=== PATIENT | female | born 1965 | race Caucasian/White ===

== ENCOUNTER 2016-07-18 11:18 | Inpatient (IN) | payer BC ==
[~2016-07-18] VITALS: Ht 165.1 cm; Wt 103.5 kg
[2016-07-18 11:24] VITALS: Ht 165.1 cm; Wt 103.5 kg
[2016-07-18] MEDS ORDERED: PRLSR20 PO (11:50)
[2016-07-18] MEDS ORDERED: DIAZ-165 PO (11:50)
[2016-07-18] MEDS ORDERED: OXYC-57 PO (11:50)
[2016-07-18] MEDS ORDERED: IBUP-1451 PO (11:50)
[2016-07-18] MEDS ORDERED: MoRPHine SULFATE 4 MG/ML 1 ML CARP\\VIAL IV STA (12:28)
[2016-07-18] MEDS ORDERED: ONDANSETRON INJ 2 MG/ML 2 ML VIAL IV STA (12:28)
[2016-07-18] MEDS ORDERED: DEXAMETHASONE SOD INJ 10 MG/ML VIAL IV STA (12:28)
[2016-07-18 12:46] LABS: BASO % 0.4 %; BASO ABS # 0.04 K/uL (0-0.2); COMPLETE YES; EOS % 2.7 %; HEMATOCRIT 39.1 % (37-47); IG% 0.3 %; LYMPH % 27.2 %; LYMPH ABS # 2.83 K/uL (1.2-3.4); MEAN CELL VOLUME 88.7 fL (80-100); MEAN CORPUSCULAR HEMOGLOBIN 30.6 pg (25-34); MEAN CORPUSCULAR HGB CONC 34.5 g/dl (32-36); MEAN PLATELET VOLUME 9.5 fL (7.4-10.4); MONO % 6.9 %; NEUT % 62.5 %; PLATELET COUNT 370 K/uL (130-400); RED BLOOD COUNT 4.41 M/uL (4.2-5.4); WHITE BLOOD COUNT 10.41 K/uL (4.8-10.8)
[2016-07-18 13:06] LABS: BUN/CREATININE RATIO 9.7 (10-20); CALCIUM 9.2 mg/dl (8.5-10.1); CREATININE 0.9 mg/dl (0.60-1.20)
--- NOTE | 2016-07-18 15:15 | EMERGENCY ROOM VISIT NOTE ---
History First contact with patient: 11:55 Chief Complaint: BACK PAIN Stated Complaint: SEVERE BACK PAIN, LEFT LEG WEAKNESS, NUMBNESS History of Present Illness The patient is a 51 year old female who presents to the Emergency Room via private vehicle with complaints of "severe back pain, left leg weakness, numbness". The patient states that 15 years ago she had surgery performed by Dr. Aidan Pichardo of the [facility] where she had a lumbar laminectomy of the L5-S1 and potentially L4 region. She states she has been okay since that time however about 5-6 months ago she began with nerve pain in the left buttock that she performed stretches and was able to continue her daily activities. She states that as of Thursday she felt a change and has been to the [facility] twice and had an MRI as well as with her family doctor and then to see DANIS Jordan of [facility] yesterday. The patient states that they discuss that she may need surgery but she decided to try injections first. She states she thought this was reasonable however today feels that she is unable to deal with the pain on the outpatient setting. She states that she was prescribed iron and Percocet in the emergency department and has been taking Motrin and this is not been "touching" the pain. She states she lives alone and this is very difficult. She states that the MRI was performed this past Thursday. There is been no change such as trauma or reinjury to the area that she is aware of. She rates the pain as a 10/10. She denies any genital numbness, legs giving out, recent trauma, recent fall, abdominal pain, fever, incontinence. Review of Systems A complete 10-point Review of Systems was discussed with the patient, with pertinent positives and negatives listed in the History of Present Illness. All remaining Review of Systems questions can be considered negative unless otherwise specified. Past Medical/Surgical History Medical Problems: (1) Anxiety (2) Chronic sinusitis (3) GERD (gastroesophageal reflux disease) (4) Lumbar stenosis with neurogenic claudication Surgical Problems: (1) S/P bilateral breast reduction (2) S/P lumbar laminectomy Family History Heart disease, high blood pressure, cancer. Social History Smoking Status: Never Smoker Social History: Patient lives alone. Current/Historical Medications Scheduled Estradiol-Levonorgestrel (Climara Pro), 1 PATCH EXT WK Fluticasone Propionate (Nasal) (Flonase Allergy Relief), 1 SPRAY ALEC BID Omeprazole (Prilosec), 20 MG PO DAILY Probiotic Product (Probiotic), 1 CAP PO DAILY Scheduled PRN Diazepam (Valium), 5 MG PO Q8 PRN for Anxiety Ibuprofen Tab (Motrin), 800 MG PO Q8H PRN for Pain Oxycodone/Acetaminophen 5MG/325MG (Percocet 5MG/325MG), 1 TAB PO HS PRN for Pain Allergies Coded Allergies: No Known Allergies (Unverified , 07/18/16) Physical Exam Vital Signs Date Time Temp Pulse Resp B/P Pulse Ox O2 Delivery O2 Flow Rate FiO2 07/18/16 15:48 62 18 204/114 98 Room Air 07/18/16 14:38 61 18 161/97 96 Room Air 07/18/16 12:41 65 18 178/87 97 07/18/16 11:24 36.9 77 18 178/98 98 Room Air Pain Rating (0-10): 7.0 Physical Exam VITAL SIGNS - Vital signs and nursing notes were reviewed. The patient is afebrile, she is hypertensive at 178/98, she is not tachycardic and is saturating well on room air at 98%. GENERAL -51-year-old female appearing her stated age who is in no acute distress. Communicates well with provider and answers questions appropriately. SKIN - Without rashes. HEAD - NC/AT. NECK - Neck with FROM. Supple to palpation. No meningeal signs. LUNGS - Chest wall symmetric without accessory muscle use, intercostals retractions, or central cyanosis. Normal vesicular breath sounds CTA B/L. No wheezes, rales, or rhonchi appreciated. CARDIAC - RRR with S1/S2. No murmur, rubs, or gallops appreciated. ABDOMEN - Abdominal contour without pulsations or visible masses. BS normoactive all four quadrants. No tenderness, palpable masses, hepatosplenomegaly, or ascites noted. MUSCULOSKELETAL: There is no tenderness to the spinous processes of the cervical , lumbar or thoracic region. There is tenderness to the left gluteal region that radiates down the left leg. EXTREMITIES - No clubbing or peripheral cyanosis. No pretibial edema present. + 5/5 strength noted in UE/LE bilaterally. Vascular intact. NEUROLOGIC - patient neurologically intact. Patellar reflexes +2/4. PSYCH - A&Ox3 and cooperates fully with examiner. Pt is very pleasant and interacts well with examiner. Medical Decision & Procedures Laboratory Results 07/18/16 12:35 Red Blood Count 4.41, Mean Corpuscular Volume 88.7, Mean Corpuscular Hemoglobin 30.6, Mean Corpuscular Hemoglobin Concent 34.5, Mean Platelet Volume 9.5, Neutrophils (%) (Auto) 62.5, Lymphocytes (%) (Auto) 27.2, Monocytes (%) (Auto) 6.9, Eosinophils (%) (Auto) 2.7, Basophils (%) (Auto) 0.4, Neutrophils # (Auto) 6.51, Lymphocytes # (Auto) 2.83, Monocytes # (Auto) 0.72, Eosinophils # (Auto) 0.28, Basophils # (Auto) 0.04 Test 07/18/16 12:35 White Blood Count 10.41 K/uL (4.8-10.8) Red Blood Count 4.41 M/uL (4.2-5.4) Hemoglobin 13.5 g/dL (12.0-16.0) Hematocrit 39.1 % (37-47) Mean Corpuscular Volume 88.7 fL (80-100) Mean Corpuscular Hemoglobin 30.6 pg (25-34) Mean Corpuscular Hemoglobin Concent 34.5 g/dl (32-36) Platelet Count 370 K/uL (130-400) Mean Platelet Volume 9.5 fL (7.4-10.4) Neutrophils (%) (Auto) 62.5 % Lymphocytes (%) (Auto) 27.2 % Monocytes (%) (Auto) 6.9 % Eosinophils (%) (Auto) 2.7 % Basophils (%) (Auto) 0.4 % Neutrophils # (Auto) 6.51 K/uL (1.4-6.5) Lymphocytes # (Auto) 2.83 K/uL (1.2-3.4) Monocytes # (Auto) 0.72 K/uL (0.11-0.59) Eosinophils # (Auto) 0.28 K/uL (0-0.5) Basophils # (Auto) 0.04 K/uL (0-0.2) RDW Standard Deviation 43.5 fL (36.4-46.3) RDW Coefficient of Variation 13.4 % (11.5-14.5) Immature Granulocyte % (Auto) 0.3 % Immature Granulocyte # (Auto) 0.03 K/uL (0.00-0.02) Medications Administered Medications (Trade) Dose Ordered Sig/Anthony Route Start Time Stop Time Status Last Admin Dose Admin Morphine Sulfate (MoRPHine SULFATE INJ) 4 mg NOW STAT IV 07/18/16 12:28 07/18/16 12:30 DC 07/18/16 12:36 4 MG Dexamethasone Sodium Phosphate (Decadron Inj) 10 mg NOW STAT IV 07/18/16 12:28 07/18/16 12:30 DC 07/18/16 12:36 10 MG Ondansetron HCl (Zofran Inj) 4 mg NOW STAT IV 07/18/16 12:28 07/18/16 12:30 DC 07/18/16 12:36 4 MG Lorazepam 0.5 mg 0.5 mg NOW STAT PO 07/18/16 15:42 07/18/16 15:45 DC 07/18/16 15:47 0.5 MG Sodium Chloride (Nss 1000ml) 1,000 ml @ 15 mls/hr Q24H IV 07/18/16 16:21 08/17/16 16:20 07/18/16 18:16 15 MLS/HR Medical Decision Patient was seen and evaluated as above. Patient furnishes an MRI disc with results. No evidence of cauda equina syndrome. The patient appears to have tried an outpatient management of Percocet and Valium of which has not been working subjectively. I do not believe that imaging at this time needs updated as she had an MRI this past Thursday. The patient does not have any cauda equina syndrome findings upon my examination. Because the patient was in pain I did elect to obtain IV access, obtained a CBC, PRP as well as medicate the patient with morphine, Decadron and Zofran for any nausea. She was reassessed and was not feeling much better. Because the patient had been into ERs within the past week as well as her family doctor and the [facility] I did find it appropriate to discuss the case with [facility] receiving specialist. At 2:01 PM on 07/18/2016 I spoke with Alexis Rouse PA-C [facility] who encouraged me to call to the operating room and speak with Dr. William or his physician clinical education assistant. This was attempted and was unsuccessful. I then was able to reach Dr. William and speak with him at 3:37 PM on 07/18/2016. I spoke with him regarding the patient case over the speaker phone in the operating room. I discussed the case and he kindly agreed to come down to the emergency room and evaluate the patient. In reviewing the patient' s blood work for CBC and PRP did not reveal any significant findings. The decision was made to let the patient. Patient was reevaluated multiple times throughout her stay. The patient was educated upon today's decision to admit and seem With plan of care. She stated she did not feel, trouble going home as she had failed the outpatient pain therapy. Please refer to further hospital documentation regarding her stay. I believe that further evaluation and management is appropriate at this time. In the evaluation and treatment of this patient the following differential diagnoses were entertained: Cauda equina syndrome, lumbar pain with radiculopathy, acute exacerbation of chronic pain among others. [place] Drug Monitoring Program Search Results: patient reviewed within database, no issues identified Impression Primary Impression: Low back pain radiating to left lower extremity Departure Information Dispostion Admitted as an inpatient Referrals Navjot Deleon M.D. (PCP) Patient Instructions My [facility]
[2016-07-18] MEDS ORDERED: OXYCODONE HCL IR 5 MG TAB (IMMEDIATE RELEASE) PO STA (15:42)
[2016-07-18] MEDS ORDERED: LORAZEPAM 0.5 MG TAB PO STA (15:42)
[2016-07-18] MEDS ORDERED: LACTATED RINGER'S 1000ML 1,000 ML IV SCH (16:21)
[2016-07-18] MEDS ORDERED: ACETAMINOPHEN 325 MG TAB PO PRN (16:30)
[2016-07-18] MEDS ORDERED: PROMETHAZINE HCL INJ 12.5 MG in SODIUM CHLORIDE 0.9% 50ML 50 ML IV PRN (16:30)
[2016-07-18] MEDS ORDERED: NALOXONE HCL 0.4 MG/1 ML VIAL/CARP IV PRN (16:30)
[2016-07-18] MEDS ORDERED: LORAZEPAM INJ 1 MG in SYRINGE 0.5 ML IV PRN (16:30)
[2016-07-18] MEDS ORDERED: CYCLOBENZAPRINE HCL 10 MG TAB PO PRN (16:30)
--- NOTE | 2016-07-18 16:47 | HISTORY & PHYSICAL EXAMINATION ---
DATE OF ADMISSION: 07/18/2016 CHIEF COMPLAINT: Back and left leg pain. HISTORY OF PRESENT ILLNESS: This is a very pleasant 51-year-old female who presents to Emergency Department today with worsening back and left leg radiculopathy. It has progressed to the point that she is markedly limited in her ability to ambulate and exceeded her ability to control her pain at home with oxycodone and Valium. She has been in and out of the ER in [place] at least twice in the past week. She has seen her family physician for this in the past week and has been to my office yesterday and has seen my PA secondary to the pain. At that consultation, we were considering a trial of epidural injections; however, her symptoms have progressed to the point pain medications not longer control her symptoms and she is unable to ambulate. Her symptom complex starts along the lumbosacral junction extending into the left buttock, posterior thigh, below the knee, into the lesser toe, and arch of her foot. Any weightbearing markedly exacerbated her symptom complex. The pain does awaken her from sleep. Right lower extremity is asymptomatic. She does have a history of undergoing previous laminectomies at L4-5 and L5-S1 in 1998 and 2000. She has done well until the last 5 months where she had the above-mentioned symptoms progressive in nature. She denies any loss of bowel or bladder control at this time. PAST MEDICAL HISTORY: Essentially negative. PAST SURGICAL HISTORY: Includes breast reduction and previously mentioned lumbar procedures. MEDICATIONS: INCLUDE OXYCODONE AND VALIUM. 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 PHYSICAL EXAMINATION: She is hypertensive with a 204/114. Vitals are otherwise stable. She exhibits some decreased sensation to light touch in the left lower extremity compared to the right. Negative straight leg raising on the right, markedly positive on the left. She has 4+/5 dorsiflexion and extensor hallucis longus on the left, 5/5 on the right. Well-healed mid lumbar incision. MRI available for review does demonstrate evidence of a laminotomy defects at L4-5 and L5-S1 on the left. There is evidence of anterior listhesis at L4-5 on the right with a vacuum phenomenon and significant disc space collapse and bilateral neural foraminal disease at L5-S1 with evidence of disc herniation on the left side and caudal migration affecting the L5 and S1 nerve roots. ASSESSMENT: Recurrent disc herniation L5-S1, anterolisthesis L4-5, and lateral recess and foraminal stenosis. PLAN: At this time, the patient has failed an extensive course of outpatient management, has marked decline in status, and inability to ambulate and control her pain. Subsequently admitted to the hospital for pain control. I will consult medicine for preoperative evaluation and hypertensive management. We are considering revision decompression and fusion L4-5 and L5-S1 as soon as she is cleared for surgery. Risks include but not limited to from anesthesia, unsterile process, nerve damage, blood loss requiring transfusion, infection, reoperation, and benefits would be marked improvement of radicular complaints. PATRICIA
--- NOTE | 2016-07-18 16:57 | DIAGNOSTIC IMAGING REPORT ---
CHEST 2 VIEWS ROUTINE CLINICAL HISTORY: Preoperative chest COMPARISON STUDY: No previous studies for comparison. FINDINGS: The cardiac and mediastinal contours are normal. There is no evidence of focal pulmonary consolidation. There is no evidence of failure. No pleural effusions are visualized.[ IMPRESSION: No active disease in the chest. Electronically signed by: Johann Mak M.D. 07/18/2016 4:55 PM Dictated Date/Time: 07/18/2016 4:55 PM
[2016-07-18 17:17] VITALS: O2SAT 98; BMI 38.0
[2016-07-18 17:45] LABS: BUN/CREATININE RATIO 10.2 (10-20); CALCIUM 9.1 mg/dl (8.5-10.1); CREATININE 0.88 mg/dl (0.60-1.20); POTASSIUM 4.1 mmol/L (3.5-5.1)
[2016-07-18 17:48] LABS: ALB/GLOB RATIO 1.2 (0.9-2)
[2016-07-18 17:53] LABS: PREG INTERNAL NEGATIVE QC NEG CLEAR BACKGROUND; PREG INTERNAL POSITIVE QC POS CONTROL LINE
[2016-07-18] MEDS: SODIUM CHLORIDE 0.9% 1000ML 1,000 ML IV SCH (18:16)
[2016-07-18 18:45] VITALS: BP 143/82; PULSE 82; TEMP 36.6; O2SAT 97
[2016-07-18] MEDS ORDERED: HydrALAZINE HCL 20 MG/ML VIAL IV. PRN (18:45)
[2016-07-18] MEDS: HYDROmorphone HCL 0.5MG/ML 50 ML CASSETTE IV PRN ×2 (18:48→23:00)
[2016-07-18] MEDS ORDERED: MISCCAP80 PO (19:08)
[2016-07-18] MEDS ORDERED: ESTRDIS EXT (19:08)
[2016-07-18] MEDS ORDERED: FLUT0.15 NAE (19:08)
[2016-07-18 19:45] VITALS: BP 140/89; PULSE 77; TEMP 36.7; O2SAT 96
--- NOTE | 2016-07-18 19:49 | Medical Consult ---
Consultation Date of Consultation: Jul 18, 2016. Attending Physician: Marcos William D.O. Reason for Consultation: preop evaluation, hypertension History of Present Illness This is a 51 y/o female with prior lumbar laminectomy in 1998 and 2000 who was admitted today by Dr. William for intractable low back pain. Patient states back pain was going on for 5-6 months but worsened on Thursday. She was seen at [facility] twice and by her PCP Dr. Deleon earlier this week. She states pain starts in left lower back with radiation of pain down the LLE "like and electric current" with associated LLE paresthesias and weakness. She was taking Valium, Percocet, and ibuprofen at home. She was seen yesterday by Dr. Gonzalez of [facility] with plan for future injection, but unfortunately when she got home she was having uncontrolled pain to the point she was unable to ambulate. She presented to ER with pain rated 10/10 and was feeling anxious with heart racing. Her BP in the ER was elevated up to 204/114. She was treated with Oxycodone IR, morphine 4 mg, Decadron, and Ativan in ER. BP is now improved to 143/82. She denies history of HTN. She has not been on hypertensive medications. On her clinic visit 07/14/16 her BP was 138/88. She denies groin numbness or loss of bowel or bladder control. She has chronic sinusitis and was planned to have sinus surgery today which was cancelled. Denies recent fever, chills, AVILES, dizziness, cough, chest pain, SOB, nausea, vomiting, diarrhea, constipation, dysuria, frequency. Past Medical/Surgical History Medical Problems: (1) Anxiety Status: Chronic (2) Chronic sinusitis Status: Chronic (3) GERD (gastroesophageal reflux disease) Status: Chronic Surgical Problems: (1) S/P bilateral breast reduction Status: Chronic (2) S/P lumbar laminectomy Permanent Comment: 1998 and 2000 Status: Chronic Social History Smoking Status: Never Smoker Alcohol Use: socially Drug Use: none Marital Status: ( 2014) Housing Status: lives alone Occupation Status: unemployed Allergies Coded Allergies: No Known Allergies (Unverified , 07/18/16) Home Medications Active Reported Climara Pro (Estradiol-Levonorgestrel) 1 Dis Dis 1 Patch EXT WK Probiotic (Probiotic Product) 1 Cap Cap 1 Cap PO DAILY Flonase Allergy Relief (Fluticasone Propionate (Nasal)) 50 Mcg/Act Spr 1 [place] ALEC BID Valium (Diazepam) 5 Mg Tab 5 Mg PO Q8 PRN Motrin (Ibuprofen) 800 Mg Tab 800 Mg PO Q8H PRN Prilosec (Omeprazole) 20 Mg Capcr 20 Mg PO DAILY Percocet 5MG/325MG (Oxycodone/Acetaminophen) Tab 1 Tab PO HS PRN 30 Days PAIN Current Inpatient Medications Current Inpatient Medications Medications (Trade) Dose Ordered Sig/Anthony Route Start Time Stop Time Status Last Admin Dose Admin Acetaminophen (Tylenol Tab) 650 mg Q6H PRN PO 07/18/16 16:30 08/17/16 16:29 Docusate Sodium 100 mg 100 mg BID PO 07/18/16 21:00 08/17/16 20:59 Promethazine HCl/ Sodium Chloride (Phenergan Inj/ Nss 50ml) 50.5 ml @ 202 mls/hr Q6H PRN IV 07/18/16 16:30 08/17/16 16:29 Ondansetron HCl (Zofran Inj) 4 mg Q6H PRN IV 07/18/16 16:30 08/17/16 16:29 Lorazepam 1 mg 1 mg Q6H PRN PO 07/18/16 16:30 08/17/16 16:29 Lorazepam/Syringe (Ativan Inj/ Syringe) 1 ml @ 1 mls/min Q6H PRN IV 07/18/16 16:30 08/17/16 16:29 Cyclobenzaprine HCl (Flexeril Tab) 10 mg Q8H PRN PO 07/18/16 16:30 08/17/16 16:29 Oxycodone/ Acetaminophen (Percocet 5-325mg Tab) Moderate to Severe mike... Q4H PRN PO 07/18/16 16:30 08/01/16 16:29 Naloxone HCl (Narcan Inj) 0.1 mg Q5M PRN IV 07/18/16 16:30 08/17/16 16:29 Hydromorphone HCl 25 mg 25 mg PRN PRN IV 07/18/16 16:30 08/01/16 16:29 07/18/16 18:48 25 MG Sodium Chloride (Nss 1000ml) 1,000 ml @ 15 mls/hr Q24H IV 07/18/16 16:21 08/17/16 16:20 07/18/16 18:16 15 MLS/HR Hydralazine HCl (HydrALAZINE INJ) 10 mg Q8 PRN IV. 07/18/16 18:45 08/17/16 18:44 Review of Systems Constitutional: No chills, No fever ENT: + nasal symptoms (chronic sinusitis) Respiratory: No cough, No shortness of breath Cardiovascular: + problem reported (heart racing associated with anxiety), No chest pain Abdomen: No constipation, No diarrhea, No nausea, No pain, No vomiting Musculoskeletal: + calf pain (left calf spasm associated with the back pain), + problem reported (back pain- see HPI) Genitourinary - Female: No dysuria, No urinary frequency Neurologic: + numbness/tingling, + weakness Psychiatric: + anxiety Hematologic / Lymphatic: No abnormal bleeding/bruising Physical Exam Date Time Temp Pulse Resp B/P Pulse Ox O2 Delivery O2 Flow Rate FiO2 07/18/16 17:17 98 Room Air 07/18/16 16:34 106 115/73 98 Room Air 07/18/16 15:48 62 18 204/114 98 Room Air 07/18/16 14:38 61 18 161/97 96 Room Air 07/18/16 12:41 65 18 178/87 97 07/18/16 11:24 36.9 77 18 178/98 98 Room Air General Appearance: WD/WN, no apparent distress, + pertinent finding (alert 51 year old female, lying in bed, mildly uncomfortable due to pain, being set up on Dilaudid ORGAN PIPE MAKER METAL) Head: normocephalic, atraumatic Eyes: normal inspection, sclerae normal ENT: normal ENT inspection, hearing grossly normal Neck: supple, trachea midline Respiratory/Chest: lungs clear, normal breath sounds, no respiratory distress, no accessory muscle use Cardiovascular: regular rate, rhythm, no murmur Abdomen/GI: normal bowel sounds, non tender, soft Back: + pertinent finding (left lumbar paraspinal tenderness, + straight leg raise on the left, negative SLR on the right) Extremities/Musculoskelatal: normal inspection, no calf tenderness, no pedal edema Neurologic/Psych: alert, normal mood/affect, oriented x 3, + pertinent finding (sensation decreased on left foot compared to the right, able to flex extend bilateral ankles equally ) Skin: normal color, warm/dry Laboratory Results Last 24 Hours Test 07/18/16 12:35 07/18/16 17:00 White Blood Count 10.41 K/uL Red Blood Count 4.41 M/uL Hemoglobin 13.5 g/dL Hematocrit 39.1 % Mean Corpuscular Volume 88.7 fL Mean Corpuscular Hemoglobin 30.6 pg Mean Corpuscular Hemoglobin Concent 34.5 g/dl Platelet Count 370 K/uL Mean Platelet Volume 9.5 fL Neutrophils (%) (Auto) 62.5 % Lymphocytes (%) (Auto) 27.2 % Monocytes (%) (Auto) 6.9 % Eosinophils (%) (Auto) 2.7 % Basophils (%) (Auto) 0.4 % Neutrophils # (Auto) 6.51 K/uL Lymphocytes # (Auto) 2.83 K/uL Monocytes # (Auto) 0.72 K/uL Eosinophils # (Auto) 0.28 K/uL Basophils # (Auto) 0.04 K/uL RDW Standard Deviation 43.5 fL RDW Coefficient of Variation 13.4 % Immature Granulocyte % (Auto) 0.3 % Immature Granulocyte # (Auto) 0.03 K/uL Sodium Level 140 mmol/L 141 mmol/L Potassium Level 4.0 mmol/L 4.1 mmol/L Chloride Level 106 mmol/L 106 mmol/L Carbon Dioxide Level 25 mmol/L 23 mmol/L Anion Gap 9.0 mmol/L 12.0 mmol/L Blood Urea Nitrogen 9 mg/dl 9 mg/dl Creatinine 0.90 mg/dl 0.88 mg/dl Est Creatinine Clear Calc Drug Dose 89.3 ml/min 91.3 ml/min Estimated GFR () 86.4 88.8 Estimated GFR (Non- 74.6 76.6 BUN/Creatinine Ratio 9.7 10.2 Random Glucose 89 mg/dl 125 mg/dl Calcium Level 9.2 mg/dl 9.1 mg/dl Total Bilirubin 0.5 mg/dl Aspartate Amino Transf (AST/SGOT) 18 U/L Alanine Aminotransferase (ALT/SGPT) 17 U/L Alkaline Phosphatase 65 U/L Total Protein 7.8 gm/dl Albumin 4.2 gm/dl Globulin 3.6 gm/dl Albumin/Globulin Ratio 1.2 Human Chorionic Gonadotropin, Qual NEG Assessment & Plan INTRACTABLE BACK PAIN Admitted to ortho service by Dr. William History of prior lumbar laminectomies in 1998 and 2000 Has recurrent disc herniation L5-S1, anterolisthesis L4-L5, and lateral recess and foraminal stenosis as per ortho note On ORGAN PIPE MAKER METAL for pain control; bowel regimen added Plan is for possible revision surgery CBC and PRP unremarkable; CXR unremarkable EKG shows nonspecific T wave abnormalities; no prior EKG available for comparison Recheck EKG in am She is considered medically stable for elective surgery HYPERTENSION BP elevated to 204/115 in ER- likely due to pain and anxiety; now improved to 143/82 No history of hypertension; not on antihypertensive medications Will monitor and add PRN hydralazine ANXIETY Will add PRN Ativan CHRONIC SINUSITIS Surgery planned for 07/18/16 has been postponed Continue Flonase GERD Continue PPI DVT PROPHYLAXIS Per ortho DISPOSITION Per ortho Follows with Dr. Deleon for primary care Patient seen in collaboration with Dr. Mccollum. Please see her addendum. Patient will be followed by Dr. Diaz tomorrow. ATTENDING NOTE : pt seen and examined, in agreement with above H&P by Marlee Spivey PA-C 51 yo F no significant past medical history presents with severe intractable back pain was seen at PCP office and Orthopedics office in last few days admitted to Orthopedics service or spinal stenosis scheduled for elective lumber spine decompression surgery p/E: gen ; no sign of distress HEENT ; sclera non icteric , PERRLA/EOMI HT: regular S1/S2 Lungs: CTA abdomen: soft , non tender ext : no rash or deformity + straight leg test on left side Neuro: no focal deficit A/P : HTN: no prior hx of HTN /not on any antihypertensive meds - due to intractable back pain anxiety -pt is very anxious regarding her procedure on Dilaudid ORGAN PIPE MAKER METAL pump ordered for PRN Ativan BP improved after pain was controlled with ORGAN PIPE MAKER METAL pump EKG this AM shows some flattening of T wave on lateral leads ( none prior to compare ) possible due to HTN effect repeat EKG ordered in AM pt does not have any cardiac hx Medically stable to proceed for elective lumber spinal decompression surgery Thank you for allowing us to participate in care for the Patient Dr Diaz will follow the patient form tomorrow 07/19/16
[2016-07-18] MEDS: ONDANSETRON INJ 2 MG/ML 2 ML VIAL IV PRN (20:27)
[2016-07-18 20:49] VITALS: BP 138/78; PULSE 71; TEMP 36.6; O2SAT 97
[2016-07-18] MEDS: FLUTICASONE PROPIONATE NA SPR 16 GM BTL NAE SCH (21:00)
[2016-07-18 21:42] VITALS: BP 137/81; PULSE 71; TEMP 36.5; O2SAT 96
[2016-07-18] MEDS: DOCUSATE SODIUM 100 MG CAP PO SCH (21:52)
[2016-07-18 23:34] VITALS: BP 119/75; PULSE 60; TEMP 36.5; O2SAT 96
[2016-07-19] MEDS: ONDANSETRON INJ 2 MG/ML 2 ML VIAL IV PRN ×2 (02:01→21:46)
[2016-07-19 03:45] VITALS: BP 132/70; PULSE 74; TEMP 36.5; O2SAT 98
[2016-07-19] MEDS: HYDROmorphone HCL 0.5MG/ML 50 ML CASSETTE IV PRN ×2 (07:00→19:13)
[2016-07-19 07:31] VITALS: BP 145/63; PULSE 65; TEMP 36.9; O2SAT 98
[2016-07-19] MEDS ORDERED: NON-FORMULARY MEDICATION (Probiotic Product (Probiotic) 1 CAP) PO SCH (09:00)
--- NOTE | 2016-07-19 10:37 | PROGRESS NOTE ---
DATE: 07/19/2016 DATE: 07/19/2016. Ms. Gusman continues to have excruciating left leg pain. The Dilaudid STAMPING DIE MAKER is providing some modest relief. She is able to get a few hours of sleep. She is still markedly uncomfortable. She has been assessed by medicine, appears to be a reasonable candidate for surgical procedure. We will plan on surgery this Thursday. We will make her n.p.o. after midnight tomorrow night. She understands and agrees.
[2016-07-19] MEDS: PANTOprazole SOD 40 MG TAB PO SCH (10:52)
[2016-07-19] MEDS: DOCUSATE SODIUM 100 MG CAP PO SCH ×2 (10:52→21:46)
[2016-07-19] MEDS: FLUTICASONE PROPIONATE NA SPR 16 GM BTL NAE SCH ×2 (10:53→21:49)
[2016-07-19] MEDS: POLYETHYLENE (MIRALAX) 17 GM PACK PO SCH (10:53)
[2016-07-19 12:00] VITALS: BP 152/90; PULSE 66; TEMP 37.3; O2SAT 97
[2016-07-19 15:03] VITALS: BP 157/104; PULSE 62; TEMP 36.9; O2SAT 97
[2016-07-19] MEDS: LORAZEPAM 1 MG TAB PO PRN ×2 (15:38→21:47)
--- NOTE | 2016-07-19 18:24 | Progress Note ---
Internal Med Progress Note Date of Service: Jul 19, 2016. Provider Documentation: SUBJECTIVE: still have significant pain in the back pain meds helping denies chest pain or sob afebrile' no nausea OBJECTIVE: Vital Signs-as noted below Exam: General-alert and oriented ENT-normal hearing Neck-no neck masses Lungs-cta b/l no wheezing or crackles Heart-s1 and s2 heard regular rate and rhythm no murmurs Abdomen-soft bowel sounds present non tender no distension Extremities-no erythema Neuro-alert and awake moves extremities Lab data as noted below. ASSESSMENT & PLAN: INTRACTABLE BACK PAIN Admitted to ortho service by Dr. 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 ANXIETY PRN Ativan CHRONIC SINUSITIS Surgery planned for 07/18/16 has been postponed Continue Flonase GERD on PPI DVT PROPHYLAXIS Per ortho DISPOSITION Per ortho Follows with Dr. Deleon for primary care Vital Signs: Date Time Temp Pulse Resp B/P Pulse Ox O2 Delivery O2 Flow Rate FiO2 07/19/16 15:03 36.9 62 16 157/104 97 Room Air 07/19/16 12:00 37.3 66 16 152/90 97 Room Air 07/19/16 08:30 Room Air 07/19/16 07:31 36.9 65 19 145/63 98 Room Air 07/19/16 03:45 36.5 74 18 132/70 98 Room Air 07/18/16 23:35 Room Air 07/18/16 23:34 36.5 60 18 119/75 96 Room Air 07/18/16 21:42 36.5 71 14 137/81 96 Room Air 07/18/16 21:13 Room Air 07/18/16 20:49 36.6 71 14 138/78 97 Room Air 07/18/16 19:45 36.7 77 16 140/89 96 Room Air 07/18/16 18:45 36.6 82 16 143/82 97 Room Air 07/18/16 18:45 36.6 82 16 143/82 97 Room Air
[2016-07-19 18:40] VITALS: BP 146/99; PULSE 70; TEMP 37.1; O2SAT 98
[2016-07-19] MEDS: BISACODYL 5 MG TABEC PO PRN (21:46)
[2016-07-19] MEDS: OXYCODONE/ACETAMINOPHEN 5-325 TAB PO PRN (21:47)
[2016-07-19] MEDS: SODIUM CHLORIDE 0.9% 1000ML 1,000 ML IV SCH (21:52)
[2016-07-19 23:10] VITALS: BP 113/72; PULSE 56; TEMP 36.5; O2SAT 99
[2016-07-20] MEDS: OXYCODONE/ACETAMINOPHEN 5-325 TAB PO PRN ×4 (04:06→21:58)
[2016-07-20 07:07] VITALS: BP 112/74; PULSE 67; TEMP 37; O2SAT 97
[2016-07-20] MEDS: HYDROmorphone HCL 0.5MG/ML 50 ML CASSETTE IV PRN (07:10)
[2016-07-20] MEDS: PANTOprazole SOD 40 MG TAB PO SCH (08:29)
[2016-07-20] MEDS: DOCUSATE SODIUM 100 MG CAP PO SCH ×2 (08:29→21:57)
[2016-07-20] MEDS: FLUTICASONE PROPIONATE NA SPR 16 GM BTL NAE SCH ×2 (08:29→21:56)
[2016-07-20] MEDS ORDERED: BISACODYL 10 MG SUPP PR PRN (09:15)
--- NOTE | 2016-07-20 10:04 | PROGRESS NOTE ---
DATE: 07/20/2016 Today, she has noted that despite the ____ controlling her leg pain. She is actually getting more relief from 2 oxycodone and Ativan. We will subsequently hold the SURG PHYSICIAN ASST today. May need to re-initiate postoperatively. She is still complaining of significant left leg pain, is undergoing very modest activity secondary to discomfort. Exam otherwise unchanged. ASSESSMENT: Spinal stenosis, recurrent disc herniation. PLAN: At this time, she will be n.p.o. after midnight. Plan for revision decompression and fusion tomorrow. All questions were addressed.
[2016-07-20 11:00] VITALS: BP 123/82; PULSE 64; TEMP 37.3; O2SAT 95
[2016-07-20] MEDS: LORAZEPAM 1 MG TAB PO PRN ×2 (12:35→21:58)
[2016-07-20 15:18] VITALS: BP 140/88; PULSE 85; TEMP 36.3; O2SAT 96
[2016-07-20] MEDS: POLYETHYLENE (MIRALAX) 17 GM PACK PO SCH (17:39)
--- NOTE | 2016-07-20 18:19 | Progress Note ---
Internal Med Progress Note Date of Service: Jul 20, 2016. Provider Documentation: SUBJECTIVE: still have significant pain in the back but pain meds helping denies chest pain or sob afebrile' no nausea await for surgery in am OBJECTIVE: Vital Signs-as noted below Exam: General-alert and oriented ENT-normal hearing Neck-no neck masses Lungs-cta b/l no wheezing or crackles Heart-s1 and s2 heard regular rate and rhythm no murmurs Abdomen-soft bowel sounds present non tender no distension Extremities-no erythema Neuro-alert and awake moves extremities Lab data as noted below. ASSESSMENT & PLAN: INTRACTABLE BACK PAIN Admitted to ortho service by Dr. 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 satble ANXIETY PRN Ativan CHRONIC SINUSITIS Surgery planned for 07/18/16 has been postponed Continue Flonase GERD on PPI DVT PROPHYLAXIS Per ortho DISPOSITION Per ortho Follows with Dr. Deleon for primary care Vital Signs: Date Time Temp Pulse Resp B/P Pulse Ox O2 Delivery O2 Flow Rate FiO2 07/20/16 15:18 36.3 85 18 140/88 96 Room Air 07/20/16 11:00 37.3 64 18 123/82 95 Room Air 07/20/16 08:15 Room Air 07/20/16 07:07 37.0 67 19 112/74 97 Room Air 07/19/16 23:10 36.5 56 18 113/72 99 Room Air 07/19/16 19:45 Room Air 07/19/16 18:40 37.1 70 16 146/99 98 Room Air
[2016-07-20] MEDS: BISACODYL 5 MG TABEC PO PRN (21:56)
[2016-07-20 23:14] VITALS: BP 103/68; PULSE 67; TEMP 36.4; O2SAT 95
[2016-07-21] VITALS (7 sets, daily range): BP systolic 117–139; BP diastolic 73–90; PULSE 68–99; TEMP 36.3–36.8; O2SAT 92–100
[2016-07-21] MEDS ORDERED: HYDROmorphone INJ 1 MG/ML SYR IV ONE (06:45)
[2016-07-21] MEDS: ONDANSETRON INJ 2 MG/ML 2 ML VIAL IV PRN ×2 (06:46→19:58)
--- NOTE | 2016-07-21 07:19 | History & Physical Bridge Note ---
H&P Re-Evaluation Bridge Note: I have examined the patient, reviewed the History & Physical and in the interval since the performance of the History & Physical I have noted the following changes of clinical significance: No changes noted
[2016-07-21] MEDS: OXYCODONE/ACETAMINOPHEN 5-325 TAB PO PRN ×2 (07:46→11:57)
[2016-07-21] MEDS ORDERED: NURSING VERBAL MED ORDER ONE (08:00)
[2016-07-21] MEDS: DOCUSATE SODIUM 100 MG CAP PO SCH (09:00)
[2016-07-21] MEDS: PANTOprazole SOD 40 MG TAB PO SCH (09:00)
[2016-07-21] MEDS: POLYETHYLENE (MIRALAX) 17 GM PACK PO SCH (09:00)
[2016-07-21] MEDS: FLUTICASONE PROPIONATE NA SPR 16 GM BTL NAE SCH ×2 (09:25→20:59)
[2016-07-21] MEDS ORDERED: NURSING VERBAL MED ORDER STA (13:40)
[2016-07-21] MEDS ORDERED: CEFAZOLIN IV 2,000 MG/60 ML D5W IV ONE (13:44)
[2016-07-21] MEDS ORDERED: SCOPOLAMINE 1.5 MG TDSY TD ONE ×2 (13:57→14:00)
[2016-07-21] MEDS ORDERED: PHENYLEPHRINE 100MCG/ML 5ML SYR IV PRN (14:00)
[2016-07-21] MEDS ORDERED: ATROPINE SULFATE 0.1 MG/ML 5ML SYR IV PRN (14:00)
[2016-07-21] MEDS ORDERED: ONDANSETRON INJ 2 MG/ML 2 ML VIAL IV PRN ×2 (14:00→16:45)
[2016-07-21] MEDS ORDERED: FLUMAZENIL 0.1 MG/1 ML 10 ML VIAL IV PRN (14:00)
[2016-07-21] MEDS ORDERED: NALOXONE HCL 0.4 MG/1 ML VIAL/CARP IV PRN ×3 (14:00→16:45)
[2016-07-21] MEDS ORDERED: EpHEDrine SULFATE INJ 50 MG/ML AMP IV PRN (14:00)
[2016-07-21] MEDS ORDERED: LABETALOL HCL IV 5 MG/ML 20ML IV PRN (14:00)
[2016-07-21] MEDS ORDERED: MoRPHine SULFATE 10 MG/ML CARP/VIAL IV PRN (14:00)
[2016-07-21] MEDS ORDERED: MEPERIDINE HCL 25 MG/ML CARP IV PRN (14:00)
[2016-07-21] MEDS ORDERED: FENTANYL CITRATE INJ 50 MCG/1 ML 2 ML VIAL ONE ×2 (14:05→15:17)
[2016-07-21] MEDS ORDERED: MIDAZOLAM HCL 1 MG/ML 2ML VIAL ONE (14:05)
[2016-07-21] MEDS ORDERED: DEXAMETHASONE SOD INJ 4 MG/ML VIAL ONE (14:08)
[2016-07-21] MEDS ORDERED: PROPOFOL IV EMULSION 10 MG/ML 20 ML VIAL IV ONE (14:08)
[2016-07-21] MEDS ORDERED: ROCURONIUM BROMIDE 10 MG/ML 5 ML VIAL ONE ×2 (14:08→14:34)
[2016-07-21] MEDS ORDERED: LIDOCAINE HCL 2% 2 ML VIAL (20MG/ML) ONE (14:08)
[2016-07-21] MEDS ORDERED: ONDANSETRON INJ 2 MG/ML 2 ML VIAL ONE (14:09)
[2016-07-21] MEDS ORDERED: NEOSTIGMINE METHYLSULFATE 1 MG/ML 10ML VIAL ONE (14:09)
[2016-07-21] MEDS ORDERED: GLYCOPYRROLATE INJ 0.2 MG/ML VIAL ONE (14:09)
[2016-07-21] MEDS ORDERED: MoRPHine SULFATE 2 MG/ML CARP ONE (14:37)
[2016-07-21] MEDS ORDERED: BUPIVACAINE/EPINEPHRINE 0.5% MPF 1:200,000 30 ML VIAL INJ ONE (16:06)
[2016-07-21] MEDS ORDERED: FLOSEAL HEMOSTATIC MATRIX 10ML TOP ONE (16:07)
[2016-07-21] MEDS ORDERED: BACITRACIN 50000 UNIT VIAL IR ONE ×2 (16:08→16:11)
--- NOTE | 2016-07-21 16:19 | DIAGNOSTIC IMAGING REPORT ---
LUMBAR SPINE, INTRAOPERATIVE FLUOROSCOPY HISTORY: L4-S1 decompression and fusion. FLUOROSCOPY TIME: 18 seconds. FINDINGS: Intraoperative fluoroscopy was provided for the lumbar spine. 2 fluoroscopic spot images were obtained. Posterior decompression and fusion from L4 through S1 with pedicle screws and rods. The hardware is intact. IMPRESSION: Fluoroscopy provided for a L4-S1 posterior decompression and fusion. Electronically signed by: Aman Edwards M.D. 07/21/2016 4:18 PM Dictated Date/Time: 07/21/2016 4:17 PM
[2016-07-21] MEDS ORDERED: SODIUM CHLORIDE 0.9% 1000ML 1,000 ML IV SCH (16:32)
[2016-07-21] MEDS: LACTATED RINGER'S 1000ML 1,000 ML IV SCH ×2 (16:32→23:26)
--- NOTE | 2016-07-21 16:32 | [facility] Post Operative Brief Note ---
Immediate Operative Summary Operative Date Jul 21, 2016. Pre-Operative Diagnosis SPINAL STENOSIS Post-Operative Diagnosis SAME Procedure(s) Performed L4-L5, L5-S1 Decompression /Fusion Surgeon DR. Vicki CAGE Histotechnician Surgeon(s) 0 Estimated Blood Loss 100ML Findings stenosis Specimens NONE PER SURGEON
[2016-07-21] MEDS ORDERED: ALUMINUM/MAGNESIUM SUSP 30 ML UDC PO PRN (16:45)
[2016-07-21] MEDS ORDERED: PROMETHAZINE HCL INJ 12.5 MG in SODIUM CHLORIDE 0.9% 50ML 50 ML IV PRN (16:45)
[2016-07-21] MEDS ORDERED: ACETAMINOPHEN 500 MG TAB PO PRN (16:45)
[2016-07-21] MEDS ORDERED: METOCLOPRAMIDE HCL INJ 5 MG/ML 2 ML VIAL IV PRN (16:45)
[2016-07-21] MEDS ORDERED: MAGNESIUM HYDROXIDE SUSP 30 ML UDC PO PRN (16:45)
[2016-07-21] MEDS ORDERED: hydrOXYzine HCL 25 MG TAB PO PRN (16:45)
[2016-07-21] MEDS ORDERED: LORAZEPAM 0.5 MG TAB PO PRN (16:45)
[2016-07-21] MEDS ORDERED: DO NOT ADMINISTER FLU VACCINE PRN ×3 (16:45)
[2016-07-21] MEDS ORDERED: BISACODYL 10 MG SUPP PR PRN (16:45)
[2016-07-21] MEDS ORDERED: SOD PHOSPHATE/SOD BIPHOSPHATE ENEMA 132 ML BTL PR PRN (16:45)
[2016-07-21] MEDS ORDERED: FAMOTIDINE 20 MG TAB PO PRN (16:45)
[2016-07-21] MEDS ORDERED: LORAZEPAM INJ 0.5 MG in SYRINGE 0 ML IV PRN (16:45)
[2016-07-21] MEDS ORDERED: HYDROmorphone HCL 0.5MG/ML 50 ML CASSETTE ONE (16:45)
[2016-07-21] MEDS ORDERED: DO NOT ADMINISTER PNEUMOCOCCAL VACCINE PRN ×2 (16:45)
[2016-07-21] MEDS ORDERED: ACETAMINOPHEN IV 100 ML IV PRN (16:45)
[2016-07-21] MEDS: HYDROmorphone INJ 1 MG/ML SYR IV PRN ×2 (16:57→17:02)
[2016-07-21] MEDS: HYDROmorphone HCL 0.5MG/ML 50 ML CASSETTE IV PRN ×2 (17:00→23:32)
[2016-07-21] MEDS ORDERED: PROMETHAZINE HCL INJ 25 MG in SODIUM CHLORIDE 0.9% 50ML 50 ML IV ONE (17:15)
--- NOTE | 2016-07-21 17:27 | Anesthesiology Progress Note ---
Anesthesia Post Op Note Date & Time Jul 21, 2016 at 17:28 Vital Signs Pain Intensity: 0 Vital Signs Past 12 Hours Date Time Temp Pulse Resp B/P Pulse Ox O2 Delivery O2 Flow Rate FiO2 07/21/16 17:25 74 14 150/85 100 Nasal Cannula 4 07/21/16 17:15 77 14 125/72 98 Nasal Cannula 4 07/21/16 17:05 68 18 127/75 97 Nasal Cannula 4 07/21/16 16:55 85 14 149/90 99 Nasal Cannula 4 07/21/16 16:45 36 89 16 139/88 100 Mask 10 07/21/16 07:45 Room Air 07/21/16 07:08 36.8 68 16 117/73 93 Room Air Notes Mental Status: alert / awake / arousable, participated in evaluation Pt Amnestic to Procedure: Yes Nausea / Vomiting: adequately controlled Pain: adequately controlled Airway Patency, RR, SpO2: stable & adequate BP & HR: stable & adequate Hydration State: stable & adequate Anesthetic Complications: no major complications apparent
--- NOTE | 2016-07-21 18:34 | OPERATIVE REPORT ---
DATE OF OPERATION: 07/21/2016 PREOPERATIVE DIAGNOSES: Spinal stenosis, herniated nucleus pulposus, spondylolisthesis. POSTOPERATIVE DIAGNOSES: Same. PROCEDURE PERFORMED: 1. Revision decompression, medial facetectomy and foraminotomy L3-L4, L4-5, L5-S1. 2. Posterior spinal fusion L4-5, L5-S1. 3. Placement posterior segmental instrumentation using Orthros rods and screws L4-5, L5-S1. 4. Interbody fusion L4-L5 and L5-S1. 5. Placement of PEEK cage 11 x 22 at L4-L5 and 8 x 22 at L5-S1. 6. Placement of locally harvested morcellized autograft in posterior gutters. 7. Placement of Infuse collagen sponge combined with Mastergraft in the posterior gutters and Angela bone grafting in the interbody space. SURGEON: Dr. Marcos William. ANESTHESIA: General. DISPOSITION: The patient awakened and taken to PACU in stable condition. HISTORY OF PATIENT'S PROBLEMS: This is a 51-year-old female that presents with above-mentioned diagnosis. After failing an extensive course of nonoperative care, elected to undergo the above-mentioned procedure. Risks, benefits, pros, cons, and alternatives were outlined in detail preoperatively. DESCRIPTION OF PROCEDURE: The patient was met with preoperatively, case discussed and all questions were addressed. At that point the patient was taken back to operative suite and after undergoing successful general endotracheal intubation via department of anesthesia was placed in prone position on the Terence table atop Damian frame. All bony prominences were well padded and the eyes were inspected to ensure there was no external post-trauma this point, lumbar spine was prepped and draped in normal sterile fashion. Sharp dissection with the assistance of Bovie cautery was performed down to and exposing the remaining lamina and transverse processes of L4-L5 and sacral ala bilaterally. At this point, a revision complete laminectomy of L5, L4, partial laminectomy of L3 was performed addressing severe lateral recess foraminal disease. Obvious facet hypertrophy, anterior listhesis at L4-L5 was noted. Pedicle screws were then placed in L4, L5 and S1 levels bilaterally with the assistance of fluoroscopy and appropriate size eloisa provisionally placed. Through a transforaminal approach on the left, a complete discectomy of L5-S1 was performed, endplates curetted to subcortical bleeding bone and 8 x 22 mm PEEK cage filled with Angela bone grafting tapped into position. I then proceeded to L4-L5 and again through a transforaminal approach on the left, a complete discectomy was performed, evidence of massive amounts of disc material around the nerve roots were removed, endplates curetted to subcortical bleeding bone and a 12 x 22 mm PEEK cage filled with Angela bone grafting tapped into position. Rods were then locked into final position bilaterally and transverse processes of L4, L5 and S1 levels burred to subcortical bleeding bone. Infuse collagen sponge combined with Mastergraft and locally harvested morselized autograft was placed in the posterior gutters. A 7 flat SHAYY drain was inserted. Incision was closed with 1-0 Vicryl in the fascia, 2-0 Vicryl subcutaneously, 4-0 Monocryl for final skin closure. Steri-Strips and sterile dressing placed. The patient was awakened and taken to PACU in stable condition. I attest to the content of the Intraoperative Record and any orders documented therein. Any exceptio ns are noted below.
--- NOTE | 2016-07-21 18:44 | Progress Note ---
Internal Med Progress Note Date of Service: Jul 21, 2016. Provider Documentation: SUBJECTIVE: s/p back surgery today has pain at surgery site no nausea no sob or chest pain afebrile OBJECTIVE: Vital Signs-as noted below Exam: General-alert and oriented ENT-normal hearing Neck-no neck masses Lungs-cta b/l no wheezing or crackles Heart-s1 and s2 heard regular rate and rhythm no murmurs Abdomen-soft bowel sounds present non tender no distension Musculoskeletal s/p back surgery Extremities-no erythema Neuro-alert and awake moves extremities Lab data as noted below. ASSESSMENT & PLAN: INTRACTABLE BACK PAIN Admitted to ortho service by Dr. 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 stable so far ANXIETY PRN Ativan CHRONIC SINUSITIS Surgery planned for 07/18/16 has been postponed Continue Flonase GERD on PPI DVT PROPHYLAXIS Per ortho DISPOSITION Per ortho Follows with Dr. Deleon for primary care Vital Signs: Date Time Temp Pulse Resp B/P Pulse Ox O2 Delivery O2 Flow Rate FiO2 07/21/16 17:45 71 12 124/70 100 Nasal Cannula 4 07/21/16 17:35 36.5 71 12 125/82 100 Nasal Cannula 4 07/21/16 17:25 74 14 150/85 100 Nasal Cannula 4 07/21/16 17:15 77 14 125/72 98 Nasal Cannula 4 07/21/16 17:05 68 18 127/75 97 Nasal Cannula 4 07/21/16 16:55 85 14 149/90 99 Nasal Cannula 4 07/21/16 16:45 36 89 16 139/88 100 Mask 10 07/21/16 07:45 Room Air 07/21/16 07:08 36.8 68 16 117/73 93 Room Air 07/20/16 23:14 36.4 67 18 103/68 95 Room Air 07/20/16 20:20 Room Air
[2016-07-21] MEDS: DOCUSATE SODIUM/SENNA 50/8.6MG TAB PO SCH (21:01)
[2016-07-21] MEDS: DEXAMETHASONE INJ 6 MG in SYRINGE 0 ML IV SCH (21:37)
[2016-07-21] MEDS: CEFAZOLIN IV 2,000 MG in DEXTROSE 5% 50ML 50 ML IV SCH (21:49)
[2016-07-21] MEDS: LORAZEPAM 0.5 MG TAB PO PRN (21:49)
[2016-07-22 03:31] VITALS: BP 114/75; PULSE 83; TEMP 36.9; O2SAT 91
[2016-07-22] MEDS: DEXAMETHASONE INJ 6 MG in SYRINGE 0 ML IV SCH ×2 (05:37→13:59)
[2016-07-22] MEDS: CEFAZOLIN IV 2,000 MG in DEXTROSE 5% 50ML 50 ML IV SCH (05:37)
[2016-07-22] MEDS ORDERED: HYDROmorphone INJ 1 MG/ML SYR IV PRN (06:00)
[2016-07-22] MEDS ORDERED: DC PCA ONE (06:00)
[2016-07-22] MEDS ORDERED: NURSING DECISION MEDICATION ORDER SCH (06:30)
[2016-07-22 06:47] LABS: COMPLETE YES; HEMATOCRIT 36.5 % (37-47); IG% 0.3 %; LYMPH % 7.9 %; LYMPH ABS # 0.95 K/uL (1.2-3.4); MEAN CELL VOLUME 89.5 fL (80-100); MEAN CORPUSCULAR HEMOGLOBIN 30.6 pg (25-34); MEAN CORPUSCULAR HGB CONC 34.2 g/dl (32-36); MEAN PLATELET VOLUME 9.4 fL (7.4-10.4); MONO % 3.6 %; NEUT % 88.2 %; PLATELET COUNT 345 K/uL (130-400); RED BLOOD COUNT 4.08 M/uL (4.2-5.4); WHITE BLOOD COUNT 12.09 K/uL (4.8-10.8)
[2016-07-22 07:00] VITALS: BP 114/75; PULSE 83; TEMP 36.8; O2SAT 91
[2016-07-22 07:14] LABS: BUN/CREATININE RATIO 10.9 (10-20); CALCIUM 8.9 mg/dl (8.5-10.1); CREATININE 0.95 mg/dl (0.60-1.20); POTASSIUM 4.3 mmol/L (3.5-5.1)
--- NOTE | 2016-07-22 08:09 | Anesthesiology Progress Note ---
Anesthesia Post Op Note Date & Time Jul 22, 2016 at 08:08 Vital Signs Vital Signs Past 12 Hours Date Time Temp Pulse Resp B/P Pulse Ox O2 Delivery O2 Flow Rate FiO2 07/22/16 07:00 36.8 83 18 114/75 91 Room Air 07/22/16 03:31 36.9 83 18 114/75 91 Room Air 07/22/16 00:40 Room Air 07/21/16 23:22 36.5 84 18 131/87 92 Room Air 07/21/16 21:10 36.7 88 16 132/87 95 Room Air 07/21/16 20:11 36.6 99 17 135/90 95 Room Air Notes Mental Status: alert / awake / arousable, participated in evaluation Pt Amnestic to Procedure: Yes Nausea / Vomiting: adequately controlled Pain: adequately controlled Airway Patency, RR, SpO2: stable & adequate BP & HR: stable & adequate Hydration State: stable & adequate Anesthetic Complications: no major complications apparent
[2016-07-22] MEDS: FLUTICASONE PROPIONATE NA SPR 16 GM BTL NAE SCH ×2 (08:45→21:04)
[2016-07-22] MEDS: POLYETHYLENE (MIRALAX) 17 GM PACK PO SCH (08:46)
[2016-07-22] MEDS: PANTOprazole SOD 40 MG TAB PO SCH (08:46)
[2016-07-22] MEDS: OXYCODONE HCL IR 5 MG TAB (IMMEDIATE RELEASE) PO PRN ×4 (08:50→21:05)
[2016-07-22 11:41] VITALS: BP 123/82; PULSE 88; TEMP 36.8; O2SAT 96
[2016-07-22] MEDS ORDERED: RXC5 PO (13:49)
--- NOTE | 2016-07-22 13:50 | Discharge Instructions ---
Discharge Instructions Admission Reason for Admission: Lumbar Stenosis With Neurogenic Claudication Discharge Discharge Diagnosis / Problem: stenosis Discharge Goals Goal(s): Improve function Activity Recommendations Activity Limitations: per Instructions/Follow-up section . Instructions / Follow-Up Instructions / Follow-Up ACTIVITY RECOMMENDATIONS: SELF CARE INSTRUCTIONS AFTER THORACIC/LUMBAR FUSIONS 1. You may walk to your tolerance. It is good exercise for your legs and back. Expect some back and intermittent leg aches and pains. 2. You may perform "counter-top" level activities (make a sandwich, lilly with a project, etc.). 3. No bending or lifting of more than 10 pounds or back twisting of any nature (roll like a log when turning in bed). 4. You may ride in a car for 20-30 minutes at a time. No driving until after your first visit with your doctor. 5. Frequent changes of position and restricting sitting to 30 minutes at a time will help limit the amount of back spasms and stiffness you may experience. 6. You may discontinue the use of ambulatory aids (cane, crutches, etc.) once your strength and confidence allow. 7. 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 Do not take a tub bath, sit in a hot tub or go into a swimming pool until after your first recheck in the office. SPECIAL CARE INSTRUCTIONS: VERY IMPORTANT TO READ AND REVIEW A. Your surgical incision has been closed with a cosmetic suture under the skin that will dissolve in about 6 weeks. In 14 days, you can use a pair of clean scissors and cut the suture that is left outside of the skin at the ends of your incision. 1. The small skin tapes can be removed 7 days after surgery if they have not fallen off by that point. 2. You may keep the wound open to air as much as possible to promote healing after post-op day number 5 unless told otherwise by your doctor. 3. If you think the wound looks like it is becoming infected (redness or worsening drainage) and/or you are experiencing fever, chill or worsening back pain and muscle spasms, contact the office so that we may evaluate you as soon as possible. B. Complications are uncommon, but please contact us if you have any signs or symptoms of: 1. wound infection (fever higher than 102.5 degrees F, redness, separation of wound, drainage, or increasing pain from the incision) 2. blood clots in legs (pain, swelling, redness and warmth in legs) 3. urinary tract infection (fever higher than 102.5 degrees F, burning upon urination or increased frequency of urination) 4. nerve problems (inability to walk on your toes or heels, numbness, loss of bowel or bladder control) 5. any other symptoms that concern you C. Please call the office at if you have any concerns or questions about your operation or recovery. D. No smoking! Smoking drastically decreases the chance of a solid fusion. E. Do not take any anti-inflammatory medications (Indocin, Advil, Motrin, Aspirin, Naprosyn, etc.) as these may inhibit the chance of a solid fusion. Tylenol is okay to take for pain. MANAGING PAIN AFTER SPINAL SURGERY 1. Narcotic medication is intended for short-term use and will be provided for surgical pain. Surgical pain usually lasts for a period of 4-6 weeks. Narcotic medication includes Percocet, Vicodin, Darvocet, Tylenol #3 or Lortab. 2. Longer-term pain is more appropriately treated with non-narcotic medication such as Tylenol ES. 3. Muscle spasm is not appropriately treated with narcotics. Muscle relaxers such as Soma, Flexeril or Skelaxin can be used along with Tylenol ES. 4. Remember that we all live with some "aches and pains". This is not unusual or uncommon after an injury or as we get older. a. Back pain is expected and may include muscle spasms for 4 to 6 weeks after surgery. The pain should gradually improve. If the pain worsens for no apparent reason, please contact the office. b. Intermittent leg pain may also be experienced and should not be concerned about unless it worsens for no apparent reason. If so, please contact the office. 5. We will provide appropriate medication within the normal guidelines of their prescribed use. We will also be very cautious and aware of potential abuse and extended duration of patients' medication needs. a. Pain medications are for your comfort and to assist with sleep and rest so that the tissue can heal. They are not provided in order to return to normal activity and should not be used through the day. To do so or worsening pain at night can result from ongoing tissue damage and development of tolerance to the prescribed medicine. 6. Please allow 2-3 days to process refills. Prescriptions will not be mailed but must be picked up at the office. FOLLOW UP VISIT: Keep your scheduled follow-up appointment. Any questions, please call the office at . Current Hospital Diet Patient's current hospital diet: Regular Diet Discharge Diet Recommended Diet: Regular Diet Procedures Procedures Performed: L4-L5, L5-S1 Decompression /Fusion Pending Studies Studies pending at discharge: no Medical Emergencies . Who to Call and When: Medical Emergencies: If at any time you feel your situation is an emergency, please call 911 immediately. . Non-Emergent Contact Non-Emergency issues call your: Primary Care Provider . "Provider Documentation" section prepared by Marcos William. VTE Core Measure Inpt VTE Proph given/why not?: Debra Pedraza, SCD's
--- NOTE | 2016-07-22 15:16 | PROGRESS NOTE ---
DATE: 07/22/2016 SUBJECTIVE: Postop day 1. Back pain controlled. Leg pain markedly improved. Vital signs stable. T-max 36.9. SHAYY drained 130 mL. Hematocrit this a.m. is 36.5. PHYSICAL EXAMINATION: She has good strength to testing and is comfortable. ASSESSMENT: Status post revision decompression and fusion. PLAN: At this time, will continue with physical therapy, advance her bowel regimen and anticipate [facility] hopefully tomorrow or the next day.
[2016-07-22 15:17] VITALS: BP 137/82; PULSE 84; TEMP 36.6; O2SAT 94
--- NOTE | 2016-07-22 17:42 | Progress Note ---
Internal Med Progress Note Date of Service: Jul 22, 2016. Provider Documentation: SUBJECTIVE: s/p back surgery participated in PT want to go to rehab afebrile no nausea OBJECTIVE: Vital Signs-as noted below Exam: General-alert and oriented ENT-normal hearing Neck-no neck masses Lungs-cta b/l no wheezing or crackles Heart-s1 and s2 heard regular rate and rhythm no murmurs Abdomen-soft bowel sounds present non tender no distension Musculoskeletal s/p back surgery Extremities-no erythema Neuro-alert and awake moves extremities Lab data as noted below. ASSESSMENT & PLAN: INTRACTABLE BACK PAIN Admitted to ortho service by Dr. 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 stable so far ANXIETY PRN Ativan CHRONIC SINUSITIS Surgery planned for 07/18/16 has been postponed Continue Flonase GERD on PPI DVT PROPHYLAXIS Per ortho DISPOSITION Per ortho Follows with Dr. Deleon for primary care Vital Signs: Date Time Temp Pulse Resp B/P Pulse Ox O2 Delivery O2 Flow Rate FiO2 07/22/16 15:45 Room Air 07/22/16 15:17 36.6 84 16 137/82 94 Room Air 07/22/16 11:41 36.8 88 16 123/82 96 Room Air 07/22/16 07:38 Room Air 07/22/16 07:00 36.8 83 18 114/75 91 Room Air 07/22/16 03:31 36.9 83 18 114/75 91 Room Air 07/22/16 00:40 Room Air 07/21/16 23:22 36.5 84 18 131/87 92 Room Air 07/21/16 21:10 36.7 88 16 132/87 95 Room Air 07/21/16 20:11 36.6 99 17 135/90 95 Room Air 07/21/16 19:28 36.3 79 15 139/89 97 Room Air 07/21/16 19:02 92 15 135/88 95 Room Air 07/21/16 18:10 100 Nasal Cannula 4.0 07/21/16 18:10 36.6 89 14 137/88 100 Nasal Cannula 4.0 07/21/16 18:10 36.6 89 14 137/88 100 Nasal Cannula 4.0 07/21/16 18:10 Room Air 07/21/16 17:45 71 12 124/70 100 Nasal Cannula 4 Lab Results: Results Past 24 Hours Test 07/22/16 06:24 Range/Units White Blood Count 12.09 4.8-10.8 K/uL Red Blood Count 4.08 4.2-5.4 M/uL Hemoglobin 12.5 12.0-16.0 g/dL Hematocrit 36.5 37-47 % Mean Corpuscular Volume 89.5 80-100 fL Mean Corpuscular Hemoglobin 30.6 25-34 pg Mean Corpuscular Hemoglobin Concent 34.2 32-36 g/dl Platelet Count 345 130-400 K/uL Mean Platelet Volume 9.4 7.4-10.4 fL Neutrophils (%) (Auto) 88.2 % Lymphocytes (%) (Auto) 7.9 % Monocytes (%) (Auto) 3.6 % Eosinophils (%) (Auto) 0.0 % Basophils (%) (Auto) 0.0 % Neutrophils # (Auto) 10.67 1.4-6.5 K/uL Lymphocytes # (Auto) 0.95 1.2-3.4 K/uL Monocytes # (Auto) 0.43 0.11-0.59 K/uL Eosinophils # (Auto) 0.00 0-0.5 K/uL Basophils # (Auto) 0.00 0-0.2 K/uL RDW Standard Deviation 43.9 36.4-46.3 fL RDW Coefficient of Variation 13.3 11.5-14.5 % Immature Granulocyte % (Auto) 0.3 % Immature Granulocyte # (Auto) 0.04 0.00-0.02 K/uL Sodium Level 140 136-145 mmol/L Potassium Level 4.3 3.5-5.1 mmol/L Chloride Level 105 98-107 mmol/L Carbon Dioxide Level 26 21-32 mmol/L Anion Gap 9.0 3-11 mmol/L Blood Urea Nitrogen 10 7-18 mg/dl Creatinine 0.95 0.60-1.20 mg/dl Est Creatinine Clear Calc Drug Dose 84.6 ml/min Estimated GFR () 80.9 Estimated GFR (Non- 69.8 BUN/Creatinine Ratio 10.9 10-20 Random Glucose 137 70-99 mg/dl Calcium Level 8.9 8.5-10.1 mg/dl
[2016-07-22] MEDS: LORAZEPAM 0.5 MG TAB PO PRN (21:04)
[2016-07-22] MEDS: DOCUSATE SODIUM/SENNA 50/8.6MG TAB PO SCH (21:04)
[2016-07-22 23:07] VITALS: BP 106/69; PULSE 63; TEMP 36.8; O2SAT 94
[2016-07-23 05:46] VITALS: BP 111/74; PULSE 66; TEMP 36.8; O2SAT 93
[2016-07-23] MEDS: POLYETHYLENE (MIRALAX) 17 GM PACK PO SCH ×3 (05:52→18:00)
[2016-07-23 08:00] VITALS: BP 112/62; PULSE 71; TEMP 36.9; O2SAT 97
[2016-07-23] MEDS: PANTOprazole SOD 40 MG TAB PO SCH (08:07)
[2016-07-23] MEDS: FLUTICASONE PROPIONATE NA SPR 16 GM BTL NAE SCH (08:07)
[2016-07-23] MEDS: OXYCODONE HCL IR 5 MG TAB (IMMEDIATE RELEASE) PO PRN ×2 (08:12→15:32)
[2016-07-23] MEDS: BISACODYL 5 MG TABEC PO PRN (08:12)
[2016-07-23 10:50] VITALS: BP 112/62; PULSE 71; TEMP 36.9; O2SAT 97
[2016-07-23 11:57] VITALS: BP 110/70; PULSE 67; TEMP 36.7; O2SAT 98
[2016-07-23 15:55] VITALS: BP 116/76; PULSE 67; TEMP 36.3; O2SAT 96
[2016-07-23 16:46] VITALS: BP 116/76; PULSE 67; TEMP 36.3; O2SAT 96
--- NOTE | 2016-07-23 17:10 | DISCHARGE SUMMARY ---
HOSPITAL COURSE: On July 18 the patient was admitted from the ER with severe back and left leg pain secondary to herniated nucleus pulposus, spondylolisthesis. She underwent preoperative evaluation. Subsequently, on July 21 underwent revision decompression and fusion, tolerated this well and taken to the orthopedic floor postoperatively. Postop day #1, leg pain was markedly improved, ambulating well, subsequent postop day #2 she was discharged home. Discharge orders and instructions found on the chart for further review.
[2016-07-23] MEDS: LORAZEPAM 0.5 MG TAB PO PRN (17:13)
== END 2016-07-23 18:10 | disposition home health service (06) | DRG 460 ==
LOC: ENRESERVDT → ENRESERVTM → C.EDB 11:21 → C.3E 16:24
PROVIDERS: ADMIT Orthopaedic Surgery Orthopaedic Surgery of the Spine; ATTEND Orthopaedic Surgery Orthopaedic Surgery of the Spine
PROC: 0ST40ZZ Resection of Lumbosacral Disc, Open Approach (ICD-10-PCS; principal; 2016-07-21 13:30)
PROC: 0SG0071 Fusion of Lumbar Vertebral Joint with Autologous Tissue Substitute, Posterior Approach, Posterior Column, Open Approach (ICD-10-PCS; principal; 2016-07-21 13:30)
PROC: 0SG3071 Fusion of Lumbosacral Joint with Autologous Tissue Substitute, Posterior Approach, Posterior Column, Open Approach (ICD-10-PCS; principal; 2016-07-21 13:30)
PROC: 3E0U0GB Introduction of Recombinant Bone Morphogenetic Protein into Joints, Open Approach (ICD-10-PCS; principal; 2016-07-21 13:30)
PROC: 0SG30AJ Fusion of Lumbosacral Joint with Interbody Fusion Device, Posterior Approach, Anterior Column, Open Approach (ICD-10-PCS; principal; 2016-07-21 13:30)
PROC: 01NB0ZZ Release Lumbar Nerve, Open Approach (ICD-10-PCS; principal; 2016-07-21 13:30)
PROC: 0SG00AJ Fusion of Lumbar Vertebral Joint with Interbody Fusion Device, Posterior Approach, Anterior Column, Open Approach (ICD-10-PCS; principal; 2016-07-21 13:30)
PROC: 0ST20ZZ Resection of Lumbar Vertebral Disc, Open Approach (ICD-10-PCS; principal; 2016-07-21 13:30)
DX: M51.27 Other intervertebral disc displacement, lumbosacral region (principal); M43.16 Spondylolisthesis, lumbar region; M48.07 Spinal stenosis, lumbosacral region; M54.17 Radiculopathy, lumbosacral region; R03.0 Elevated blood-pressure reading, without diagnosis of hypertension; R94.31 Abnormal electrocardiogram [ECG] [EKG]; J32.9 Chronic sinusitis, unspecified; K21.9 Gastro-esophageal reflux disease without esophagitis; F41.9 Anxiety disorder, unspecified; E66.9 Obesity, unspecified; Z68.38 Body mass index [BMI] 38.0-38.9, adult; Z79.890 Hormone replacement therapy; Z79.891 Long term (current) use of opiate analgesic; Z79.899 Other long term (current) drug therapy